=== PATIENT | female | born 1990 | race Hispanic/Latino ===

== ENCOUNTER 2024-04-05 20:01 | Emergency (ER) | payer SELFPAY ==
[~2024-04-05] VITALS: Ht 157.5 cm; Wt 92.0 kg
[~2024-04-05 20:01] MED LIST: MEDDOSEPAK PO; NABUMETONE750 MG PO
[2024-04-05 21:12] LABS: BASO% 0.4 % (0-3); EOS% 2.3 % (0-8); HEMATOCRIT 37.6 % (37.0-47.0); HEMOGLOBIN 12.6 g/dl (12.0-16.0); IMMATURE GRANULOCYTES 0.1 % (0.0-5.0); LYMPH% 30.3 % (15-41); MEAN CELL VOLUME 85.6 fL CALC (80.0-100.0); MEAN CORPUSCULAR HGB 28.7 pG CALC (26.0-32.0); MEAN CORPUSCULAR HGB CONC 33.5 g/dL CAL (32.0-36.0); MONO% 8.7 % (2-13); NEUT# 4.3 thou/uL (2.00-7.15); NEUT% 58.2 % (42-76); RED BLOOD COUNT 4.39 mill/uL (4.20-5.60); RED CELL DISTRI WIDTH 12.9 % (11.5-15.5)
[2024-04-05 21:15] LABS: URINE BILIRUBIN - DIPSTICK Negative (NEGATIVE); URINE BLOOD DIPSTICK Large (NEGATIVE); URINE GLUCOSE - DIPSTICK Negative (NEGATIVE); URINE KETONE Negative (NEGATIVE); URINE LEUK ESTERASE Negative (NEGATIVE); URINE NITRITE - DIPSTICK Negative (Negative); URINE PH 7.5 (4.5-8.0); URINE PROTEIN - DIPSTICK 100 mg/dL (NEG-TRACE)
[2024-04-05 21:16] LABS: URINE COLOR Amber
[2024-04-05 21:22] LABS: URINE RBC TNTC RBC/hpf (0-5); URINE SQUAMOUS EPITHELIAL CELL FEW EPI/hpf (0-FEW)
[2024-04-05 22:40] VITALS: BP 117/74
== END 2024-04-05 22:44 | disposition home or self-care (01) | DRG 779 ==
LOC: ED 20:01
PROVIDERS: Family Medicine
DX: O03.9 Complete or unspecified spontaneous abortion without complication (principal)

== ENCOUNTER 2024-12-07 19:16 | Emergency (ER) | payer SELFPAY ==
[~2024-12-07] VITALS: Ht 157.5 cm; Wt 81.0 kg
[2024-12-07 19:57] LABS: URINE BILIRUBIN - DIPSTICK Negative (NEGATIVE); URINE BLOOD DIPSTICK Negative (NEGATIVE); URINE COLOR Light yellow; URINE GLUCOSE - DIPSTICK Negative (NEGATIVE); URINE KETONE Negative (NEGATIVE); URINE LEUK ESTERASE Negative (NEGATIVE); URINE NITRITE - DIPSTICK Negative (Negative); URINE PH 7.5 (4.5-8.0); URINE PROTEIN - DIPSTICK Negative (NEG-TRACE); URINE UROBILINOGEN - DIPSTICK 0.2 E.U./dL (0.2)
[2024-12-07] MEDS ORDERED: GLYCERIN 2 GM SUP PR ONE (21:15)
[2024-12-07] MEDS ORDERED: LIDOCAINE VISCOUS 2% 15 ML UDC PO ONE (21:15)
[2024-12-07] MEDS ORDERED: LIDOCAINE21 MT (21:15)
[2024-12-07] MEDS ORDERED: COLACE100 MG PO (21:15)
[2024-12-07 21:53] VITALS: BP 131/87
== END 2024-12-07 21:53 | disposition home or self-care (01) | DRG 153 ==
LOC: ED 19:16
PROVIDERS: Nurse Practitioner
DX: J02.9 Acute pharyngitis, unspecified (principal); Z20.822 Contact with and (suspected) exposure to COVID-19
CPT/HCPCS: J1100